=== PATIENT | male | born 1965 | race Caucasian/White ===

== ENCOUNTER 2022-07-19 10:46 | Emergency (ER) | payer SELFPAY ==
[~2022-07-19] VITALS: Ht 177.8 cm; Wt 86.2 kg
[~2022-07-19 10:46] MED LIST: bactrim; vicodin
[2022-07-19] MEDS ORDERED: PAXLOVID 300-11 EACH PO (13:08)
[2022-07-19] MEDS ORDERED: BENZONATATE200 MG PO (13:08)
[2022-07-19] MEDS ORDERED: PROAIR HFA INH8.5 GM PO (13:08)
== END 2022-07-19 13:12 | disposition home or self-care (01) ==
LOC: ER 11:08
DX: U07.1 COVID-19 (principal); J18.9 Pneumonia, unspecified organism; R05.9 Cough, unspecified
CPT/HCPCS: 71045; 99283